=== PATIENT | female | born 1945 | race Caucasian/White ===

== ENCOUNTER → 2017-07-28 | Outpatient (CLI) | payer MEDICARE ==
--- NOTE | 2017-07-28 10:04 | RAD ---
EXAM: Chest 2 views. HISTORY: Cough and wheezing. COMPARISON: 05/13/2016. FINDINGS: Frontal and lateral views of the chest are obtained. The inspiration is relatively small with bibasilar atelectasis. Prominence of the right hilum is stable and suggests pulmonary arterial enlargement. There is no pneumothorax or pleural effusion. The heart is not enlarged. There are postsurgical changes in the left upper quadrant. Vertebroplasty changes are noted at the thoracolumbar junction. IMPRESSION: 1. Small inspiration with basilar atelectasis. 2. Correlate for pulmonary arterial hypertension.
== END | disposition home or self-care (01) ==
LOC: DXRADRC 09:27
PROVIDERS: ATTEND Physician Assistant Medical
DX: J98.11 Atelectasis (principal); R09.89 Other specified symptoms and signs involving the circulatory and respiratory systems
CPT/HCPCS: 71020

== ENCOUNTER → 2017-09-23 | Outpatient (CLI) | payer MEDICARE ==
--- NOTE | 2017-09-23 09:19 | RAD ---
EXAM: Chest 2 views. HISTORY: Cough and congestion. COMPARISON: 07/28/2017. FINDINGS: Frontal and lateral views of the chest are obtained. Enlargement of the right hilum appears to been stable chronically. There is mild atelectasis in the bases. There is no pneumothorax or pleural effusion. The heart is not enlarged. The aorta distal to this. Rightward deviation of the trachea is consistent with a left thyroid goiter as seen on prior studies. Surgical clips are noted throughout the left upper quadrant. There are vertebroplasty changes at the thoracolumbar junction. IMPRESSION: 1. Right hilar enlargement appears to be chronic and suggests pulmonary arterial enlargement in the setting of pulmonary arterial hypertension. CT could confirm this if there is persistent concern. 2. Findings consistent with a left thyroid goiter.
[2017-09-23 10:12] LABS: BASO # 0.1 x10^3/uL (0.0-0.2); BASO % 1 % (0-3); EOS # 0.6 x10^3/uL (0.0-0.7); EOS % 7 % (0-3); HEMATOCRIT 39.7 % (36.0-47.0); HEMOGLOBIN 13.1 g/dL (12.0-15.5); LYMPH # 1.5 x10^3/uL (1.0-4.8); LYMPH % 15 % (24-48); MEAN CORPUSCULAR HEMOGLOBIN 30 pg (25-35); MEAN CORPUSCULAR HGB CONC 33 g/dL (31-37); MEAN CORPUSCULAR VOLUME 89 fL (79-100); MONO # 0.6 x10^3/uL (0.0-1.1); MONO % 6 % (0-9); NEUT # 6.9 x10^3uL (1.8-7.7); NEUT % 72 % (31-73); PLATELET COUNT 283 x10^3/uL (140-400); RED BLOOD COUNT 4.45 x10^6/uL (3.50-5.40); RED CELL DISTRIBUTION WIDTH 14.7 % (11.5-14.5); WHITE BLOOD COUNT 9.7 x10^3/uL (4.0-11.0)
[2017-09-23 10:36] LABS: ALBUMIN 3.4 g/dL (3.4-5.0); ALBUMIN/GLOBULIN RATIO 0.9 (1.0-1.7); CALCIUM 8.7 mg/dL (8.5-10.1); CREATININE 0.8 mg/dL (0.6-1.0); GFR 70.7; POTASSIUM 4.2 mmol/L (3.5-5.1); TOTAL BILIRUBIN 0.3 mg/dL (0.2-1.0)
== END | disposition home or self-care (01) ==
LOC: DXRAD 07:58
PROVIDERS: ATTEND Physician Assistant Medical
DX: J98.11 Atelectasis (principal); J39.8 Other specified diseases of upper respiratory tract; Z98.890 Other specified postprocedural states
CPT/HCPCS: 36415; 71020; 80053; 85025

== ENCOUNTER → 2017-12-09 | Outpatient (CLI) | payer MEDICARE ==
--- NOTE | 2017-12-09 08:31 | RAD ---
2 views of the Chest 12/09/2017 2:00 AM Indication: ASTHMA, COUGH Comparison: Chest radiograph September 23, 2017 Findings: Heart size appears normal. Tortuosity and possible ectasia of the thoracic aorta is similar. Mild central vascular congestion also similar to prior exam. No new focal consolidation or infiltrate is seen. No pneumothorax or pleural effusion is seen. No acute osseous changes are identified. Prior thoracic vertebral augmentation noted. Impression: 1.No evidence of acute cardiopulmonary process or acute change from prior exam 2. Central vascular congestion again noted, similar to prior exam
== END | disposition home or self-care (01) ==
LOC: PMG 07:59
PROVIDERS: ATTEND Physician Assistant Medical
DX: J45.909 Unspecified asthma, uncomplicated (principal)
CPT/HCPCS: 71046

== ENCOUNTER → 2018-10-15 | Outpatient (CLI) | payer MEDICARE ==
--- NOTE | 2018-10-15 12:31 | RAD ---
DATE: 10/15/2018 EXAM: DIGITAL SCREEN BILAT W/CAD HISTORY: Routine screening. COMPARISON: Previous mammogram from 2015. This study was interpreted with the benefit of Computerized Aided Detection (CAD). FINDINGS: Breast Density: SCATTERED The breast parenchyma shows scattered fibroglandular densities. Breast parenchyma level B. The skin and nipples are within normal limits. No suspicious calcifications, spiculated masses or areas of architectural distortion. Benign-appearing bilateral calcifications. IMPRESSION: No mammographic evidence of malignancy. BI-RADS CATEGORY: 2 BENIGN FINDING(S) RECOMMENDED FOLLOW-UP: 12M 12 MONTH FOLLOW-UP PQRS compliance statement: Patient information was entered into a reminder system with a target due date for the next mammogram. Mammography is a sensitive method for finding small breast cancers, but it does not detect them all and is not a substitute for careful clinical examination. A negative mammogram does not negate a clinically suspicious finding and should not result in delay in biopsying a clinically suspicious abnormality. "Our facility is accredited by the [employer] Mammography Program."
== END | disposition home or self-care (01) ==
LOC: MAMMO 10:54
PROVIDERS: ATTEND Physician Assistant Medical
DX: Z12.31 Encounter for screening mammogram for malignant neoplasm of breast (principal)
CPT/HCPCS: 77067

== ENCOUNTER 2020-09-24 15:52 | Inpatient (IN) | payer MEDICARE ==
[~2020-09-24] VITALS: Ht 167.6 cm; Wt 137.4 kg
[2020-09-24] MEDS ORDERED: IPRATRPIUM/ALBUTEROL 0.5/2.5MG 3 ML NEBU. ONE (16:08)
[2020-09-24] MEDS ORDERED: methylPREDNISolone SOD SUCC PF 125 MG/2 ML VIAL. IV ONE (16:15)
[2020-09-24] MEDS ORDERED: IPRATRPIUM/ALBUTEROL 0.5/2.5MG 3 ML NEBU. NEB ONE ×2 (16:15)
--- NOTE | 2020-09-24 16:38 | RAD ---
INDICATION: Reason: soa / Spl. Instructions: / History: COMPARISON: December 09, 2017 FINDINGS: Single view of chest obtained. Enlarged cardiomediastinal silhouette. Patchy opacities bilaterally most severe at the left lung base. Degenerative changes of the shoulders IMPRESSION: * Patchy opacities most severe at the left lung base. This could be secondary to bilateral infiltrate. A component of edema is not excluded. * Enlarged cardiomediastinal silhouette. Electronically signed by: Mann Richey MD (09/24/2020 4:35 PM) [id number]
--- NOTE | 2020-09-24 17:01 | EKG ---
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
[2020-09-24 17:07] LABS: BASO % 0 % (0-3); EOS % 0 % (0-3); HEMATOCRIT 37.4 % (36.0-47.0); HEMOGLOBIN 11.9 g/dL (12.0-15.5); LYMPH # 1.8 x10^3/uL (1.0-4.8); LYMPH % 24 % (24-48); MEAN CORPUSCULAR HEMOGLOBIN 28 pg (25-35); MEAN CORPUSCULAR HGB CONC 32 g/dL (31-37); MEAN CORPUSCULAR VOLUME 89 fL (79-100); MONO # 0.5 x10^3/uL (0.0-1.1); MONO % 7 % (0-9); NEUT # 5.3 x10^3uL (1.8-7.7); NEUT % 69 % (31-73); PLATELET COUNT 242 x10^3/uL (140-400); RED BLOOD COUNT 4.21 x10^6/uL (3.50-5.40); RED CELL DISTRIBUTION WIDTH 14.9 % (11.5-14.5); WHITE BLOOD COUNT 7.6 x10^3/uL (4.0-11.0)
[2020-09-24 17:18] LABS: CALCIUM 8.5 mg/dL (8.5-10.1); CREATININE 0.9 mg/dL (0.6-1.0); GFR 61.2; POTASSIUM 3.6 mmol/L (3.5-5.1)
--- NOTE | 2020-09-24 17:26 | PHYS DOC ---
Past History Past Medical History: Asthma Past Surgical History: No Surgical History Alcohol Use: None General Adult EDM: Chief Complaint: SHORTNESS OF BREATH HPI: HPI: Patient is a 75-year-old female who presented to ER for evaluation of trouble breathing, cough, wheezing, fever and chills for about 2 weeks. Patient has history of asthma. Patient also had some symptom at home as well. Patient is not sure if she been exposed to anybody who tested positive for COVID-19. Patient has been isolated at home. She did not feel any better today so she came here for evaluation. Patient is not a smoker. She is not on any oxygen at home. Review of Systems: Review of Systems: Constitutional: Denies fever or chills Eyes: Denies change in visual acuity HENT: Denies nasal congestion or sore throat Respiratory: Positive for cough and shortness of breath Cardiovascular: Denies chest pain or edema GI: Denies abdominal pain, nausea, vomiting, bloody stools or diarrhea : Denies dysuria Musculoskeletal: Denies back pain or joint pain Integument: Denies rash Neurologic: Denies headache, focal weakness or sensory changes Endocrine: Denies polyuria or polydipsia Lymphatic: Denies swollen glands Psychiatric: Denies depression or anxiety Current Medications: Current Meds: Current Medications Medications (Trade) Dose Ordered Sig/Josué Start Time Stop Time Status Last Admin Dose Admin Albuterol/ Ipratropium (Duoneb) 3 ml 1X ONCE 09/24/20 16:15 09/24/20 16:16 DC Methylprednisolone Sodium Succinate (SOLU-Medrol 125MG VIAL) 125 mg 1X ONCE 09/24/20 16:15 09/24/20 16:16 DC 09/24/20 16:45 125 MG Allergies: Allergies: Allergies Coded Allergies Type Severity Reaction Last Updated Verified No Known Drug Allergies 02/25/18 No Physical Exam: PE: Constitutional: Well developed, well nourished, no acute distress, non-toxic appearance. [] HENT: Normocephalic, atraumatic, bilateral external ears normal, oropharynx moist, no oral exudates, nose normal. [] Eyes: PERRLA, EOMI, conjunctiva normal, no discharge. [] Neck: Normal range of motion, no tenderness, supple, no stridor. [] Cardiovascular:Heart rate regular rhythm, no murmur [] Lungs & Thorax: Bilateral breath sounds with wheezing to auscultation, tachypnic Abdomen: Bowel sounds normal, soft, no tenderness, no masses, no pulsatile masses. [] Skin: Warm, dry, no erythema, no rash. [] Back: No tenderness, no CVA tenderness. [] Extremities: No tenderness, no cyanosis, no clubbing, ROM intact, no edema. [] Neurologic: Alert and oriented X 3, normal motor function, normal sensory function, no focal deficits noted. [] Psychologic: Affect normal, judgement normal, mood normal. [] Current Patient Data: Labs: Laboratory Tests Test 09/24/20 16:41 White Blood Count 7.6 x10^3/uL (4.0-11.0) Red Blood Count 4.21 x10^6/uL (3.50-5.40) Hemoglobin 11.9 g/dL (12.0-15.5) L Hematocrit 37.4 % (36.0-47.0) Mean Corpuscular Volume 89 fL (79-100) Mean Corpuscular Hemoglobin 28 pg (25-35) Mean Corpuscular Hemoglobin Concent 32 g/dL (31-37) Red Cell Distribution Width 14.9 % (11.5-14.5) H Platelet Count 242 x10^3/uL (140-400) Neutrophils (%) (Auto) 69 % (31-73) Lymphocytes (%) (Auto) 24 % (24-48) Monocytes (%) (Auto) 7 % (0-9) Eosinophils (%) (Auto) 0 % (0-3) Basophils (%) (Auto) 0 % (0-3) Neutrophils # (Auto) 5.3 x10^3uL (1.8-7.7) Lymphocytes # (Auto) 1.8 x10^3/uL (1.0-4.8) Monocytes # (Auto) 0.5 x10^3/uL (0.0-1.1) Eosinophils # (Auto) 0.0 x10^3/uL (0.0-0.7) Basophils # (Auto) 0.0 x10^3/uL (0.0-0.2) Sodium Level 134 mmol/L (136-145) L Potassium Level 3.6 mmol/L (3.5-5.1) Chloride Level 98 mmol/L (98-107) Carbon Dioxide Level 25 mmol/L (21-32) Anion Gap 11 (6-14) Blood Urea Nitrogen 8 mg/dL (7-20) Creatinine 0.9 mg/dL (0.6-1.0) Estimated GFR (Cockcroft-Gault) 61.2 BUN/Creatinine Ratio 9 (6-20) Glucose Level 133 mg/dL (70-99) H Calcium Level 8.5 mg/dL (8.5-10.1) Magnesium Level Pending Total Bilirubin Pending Aspartate Amino Transferase (AST) Pending Alanine Aminotransferase (ALT) Pending Alkaline Phosphatase Pending Troponin I Quantitative 0.018 ng/mL (0-0.055) SE-Zsd-G-Type Natriuretic Peptide Pending Total Protein Pending Albumin Pending Albumin/Globulin Ratio Pending Vital Signs: Vital Signs Date Time Temp Pulse Resp B/P (MAP) Pulse Ox O2 Delivery O2 Flow Rate FiO2 09/24/20 15:52 99.1 103 28 133/59 (83) 91 Room Air EKG: EKG: EKG was done at 1620, heart rate 108 beats per minute, sinus tachycardia, no ST segment elevation. [] Radiology/Procedures: Radiology/Procedures: [][place] [address] IMAGING REPORT Signed PATIENT: SHWETA QUIÑONEZ ACCOUNT: [id number] : 1945 LOCATION: ER AGE: 75 SEX: F EXAM STATUS: REG ER ORD. PHYSICIAN: JOHNSON PARSONS DO REASON: soa PROCEDURE: CHEST AP ONLY INDICATION: Reason: soa / Spl. Instructions: / History: COMPARISON: December 09, 2017 FINDINGS: Single view of chest obtained. Enlarged cardiomediastinal silhouette. Patchy opacities bilaterally most severe at the left lung base. Degenerative changes of the shoulders IMPRESSION: * Patchy opacities most severe at the left lung base. This could be secondary to bilateral infiltrate. A component of edema is not excluded. * Enlarged cardiomediastinal silhouette. Electronically signed by: Darinel Anderson MD (09/24/2020 4:35 PM) [id number] DICTATED AND SIGNED BY: DARINEL ANDERSON MD DATE: 09/24/20 1635 CC: JOHNSON PARSONS DO; WALESKA OLGUIN MD ~MTH0 0 Heart Score: Risk Factors: Risk Factors: DM, Current or recent (<one month) smoker, HTN, HLP, family history of CAD, obesity. Risk Scores: Score 0 - 3: 2.5% MACE over next 6 weeks - Discharge Home Score 4 - 6: 20.3% MACE over next 6 weeks - Admit for Clinical Observation Score 7 - 10: 72.7% MACE over next 6 weeks - Early Invasive Strategies Course & Med Decision Making: Course & Med Decision Making Pertinent Labs and Imaging studies reviewed. (See chart for details) Patient is a 75-year-old female who was evaluated in ER due to trouble breathing and cough. She is suspicious to have COVID-19 infection. Her chest x-ray showed bilateral patchy infiltration at the lung bases worse on the left side. Patient was given nebulizer treatment Solu-Medrol and antibiotic in ER, discussed with the hospitalist on-call Dr. Harvey who agrees to admit the patient. Dragon Disclaimer: Dragon Disclaimer: This electronic medical record was generated, in whole or in part, using a voice recognition dictation system. Departure Departure: Impression: Primary Impression: Pneumonia Additional Impressions: Person under investigation for COVID-19 Exacerbation of asthma Disposition: ADMITTED INPT THIS HOSP Admitting Physician: Juan C Harvey Condition: IMPROVED Referrals: WALESKA OLGUIN MD (PCP) JOHNSON PARSONS DO Sep 24, 2020 17:26
[2020-09-24] MEDS ORDERED: AZITHROMYCIN 500 MG in IV NORMAL SALINE 250ML 250 ML IV ONE (17:30)
[2020-09-24 17:31] LABS: ALBUMIN/GLOBULIN RATIO 0.7 (1.0-1.7); MAGNESIUM 1.7 mg/dL (1.8-2.4); TOTAL BILIRUBIN 0.3 mg/dL (0.2-1.0); TOTAL PROTEIN 7.2 g/dL (6.4-8.2)
[2020-09-24] MEDS ORDERED: MAGNESIUM SULFATE 2GM 50 ML IV ONE (17:45)
[2020-09-24] MEDS ORDERED: ONDANSETRON PF 4 MG/2 ML VIAL. IVP PRN (17:45)
[2020-09-24] MEDS ORDERED: cefTRIAXone SODIUM 1 GM VIAL ONE ×2 (17:51→18:23)
[2020-09-24] MEDS ORDERED: IV NORMAL SALINE 50ML 0 ML ONE (17:51)
[2020-09-24] MEDS ORDERED: IV NORMAL SALINE 250ML 250 ML ONE (17:51)
[2020-09-24] MEDS ORDERED: AZITHROMYCIN 500 MG VIAL. IV ONE (17:51)
[2020-09-24] MEDS ORDERED: IV NORMAL SALINE 50ML 50 ML ONE (18:23)
[2020-09-24 20:00] VITALS: BP 138/63
[2020-09-24] MEDS ORDERED: IPRATRPIUM/ALBUTEROL 0.5/2.5MG 3 ML NEBU. NEB SCH (20:00)
[2020-09-24 21:07] VITALS: BP 134/78
[2020-09-24 22:03] VITALS: BP 177/91
[2020-09-24 23:00] VITALS: BP 129/71
[2020-09-25] VITALS (20 sets, daily range): BP systolic 116–155; BP diastolic 57–82
[2020-09-25] MEDS ORDERED: FAMO-63 PO (07:18)
[2020-09-25] MEDS ORDERED: ESCITALOPRAM OX20 MG PO (07:18)
[2020-09-25] MEDS ORDERED: LORA10TA3 PO (07:18)
[2020-09-25] MEDS ORDERED: PRED-220 PO (07:18)
[2020-09-25 07:25] LABS: BASO % 0 % (0-3); EOS % 0 % (0-3); HEMATOCRIT 37.8 % (36.0-47.0); HEMOGLOBIN 11.9 g/dL (12.0-15.5); LYMPH # 0.5 x10^3/uL (1.0-4.8); LYMPH % 22 % (24-48); MEAN CORPUSCULAR HEMOGLOBIN 28 pg (25-35); MEAN CORPUSCULAR HGB CONC 32 g/dL (31-37); MEAN CORPUSCULAR VOLUME 90 fL (79-100); MONO # 0.2 x10^3/uL (0.0-1.1); MONO % 8 % (0-9); NEUT # 1.6 x10^3uL (1.8-7.7); NEUT % 71 % (31-73); PLATELET COUNT 248 x10^3/uL (140-400); RED BLOOD COUNT 4.22 x10^6/uL (3.50-5.40); RED CELL DISTRIBUTION WIDTH 15.3 % (11.5-14.5); WHITE BLOOD COUNT 2.3 x10^3/uL (4.0-11.0)
[2020-09-25 07:28] LABS: CALCIUM 8.4 mg/dL (8.5-10.1); CREATININE 0.9 mg/dL (0.6-1.0); GFR 61.2; POTASSIUM 4.6 mmol/L (3.5-5.1)
[2020-09-25] MEDS ORDERED: REMDESIVIR LOAD in IV NORMAL SALINE 250ML TV IV ONE (09:00)
[2020-09-25] MEDS: methylPREDNISolone SOD SUCC PF 40 MG/ML VIAL. IV SCH ×3 (09:07→21:04)
[2020-09-25] MEDS: ENOXAPARIN 40 MG/0.4 ML SYRINGE. SQ SCH ×2 (09:08→21:04)
[2020-09-25] MEDS: ACETAMINOPHEN 500 MG TABLET PO PRN ×2 (09:08→15:25)
[2020-09-25] MEDS: IPRATROPIUM/ALBUTEROL 20/100mcg/INH INHALER. INH SCH ×4 (09:08→19:26)
[2020-09-25] MEDS ORDERED: AZITHROMYCIN 250 MG in IV NORMAL SALINE 250ML 250 ML IV SCH (13:00)
[2020-09-25] MEDS: AZITHROMYCIN 500 MG in IV NORMAL SALINE 250ML 250 ML IV SCH (13:17)
--- NOTE | 2020-09-25 15:35 | HP ---
ADMIT DATE: 09/24/2020 HISTORY OF PRESENT ILLNESS: The patient is a 75-year-old female patient, who was brought to the Emergency Room for evaluation of trouble breathing, cough, wheezing, fever and chills for almost 2 weeks. The patient is known to have bronchial asthma. She and her have similar symptoms and have been quarantining themselves and have not been going out. She is not sure that she has not been exposed to anybody who tested positive for COVID-19. She has been isolated at home and as her symptoms worsening, she was brought to the Emergency Room for evaluation and treatment. She was extensively evaluated with lab work as well as imaging studies. Her white cell count is only 7600. Her chemistry was unremarkable except for mild hypomagnesemia and hyponatremia and her SARS-CoV-2 by PCR was positive. Her chest x-ray showed patchy opacities, most severe at the left lung base. This could be secondary to bilateral infiltrate, a component of edema is not excluded, has enlarged cardiomediastinal silhouette. She was admitted with diagnosis of COVID-19 pneumonia and asthma exacerbation. She was started on IV steroids as well as ceftriaxone and Zithromax. She has received convalescent plasma as well as remdesivir. PAST MEDICAL HISTORY: Significant for bronchial asthma, gastroesophageal reflux disease, seasonal allergy and osteoarthritis as well as morbid obesity as her body mass index is 48 kilograms square meter. PAST SURGICAL HISTORY: Significant for tonsillectomy, right arthroscopic knee surgery as well as gastric bypass surgery. ALLERGIES: She has no known drug allergies. MEDICATIONS: She is currently on following medications: She is on loratadine 10 mg once a day, escitalopram oxalate 20 mg once a day, famotidine 20 mg twice a day and prednisone 10 mg once a day. FAMILY HISTORY: She has 1 older brother who at the age of 76 because of complication of severe emphysema. She has 4 brothers younger, one of them has stage 4 throat cancer and has a gastrostomy tube. Both parents are . SOCIAL HISTORY: She is , has a son and a daughter. She has never smoked herself, but she has been a secondhand smoker. She does not drink alcohol or use any recreational drugs. 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 REVIEW OF SYSTEMS: As per history of present illness. PHYSICAL EXAMINATION: GENERAL: On arrival to the Emergency Room, the patient was slightly tachypneic; however, there was no pallor, jaundice, cyanosis or thyromegaly. No jugular venous distention. No lower limb edema. VITAL SIGNS: Her heart rate was 103, blood pressure was 133/59, temperature was 99.1, respiratory rate was 28 and oxygen saturation was 91%. HEAD, EYES, EARS, NOSE AND THROAT: Showed normocephalic, atraumatic. NECK: Supple. HEART: Normal first and second heart sounds. No gallop or murmur. CHEST: Shows central trachea, equal bilateral chest expansion, air entry with diffuse bilateral wheezing and inspiratory rhonchi. She was definitely tachypneic. ABDOMEN: Distended, soft, nontender. NEUROLOGIC: She was alert, oriented x 3 with normal motor and sensory function, no focal deficit. EXTREMITIES: Showed no clubbing, cyanosis or edema. Her EKG showed that she was in sinus tachycardia with heart rate of 108 beats per minute with no ST segment elevation. LABORATORY WORK: Showed a white cell count of 7600, hemoglobin 11.9, hematocrit 37.4, MCV 89 and platelet count 242,000. Her chemistry showed a serum sodium 134, potassium 3.6, chloride 98, bicarbonate 25, anion gap of 11, BUN 8, creatinine 0.9, estimated GFR was 61 mL per minute. Her glucose 133, calcium was 8.5. Magnesium was 1.7. Total bilirubin, AST, ALT, alkaline phosphatase were normal. Beta natriuretic peptide was 630 pg/mL. Her total protein was 7.2, albumin 3. Her chest x-ray showed that she has enlarged cardiomediastinal silhouette with patchy opacities bilaterally, most severe at the left lung base. She had degenerative changes of the shoulders. Therefore, the patient was admitted with community-acquired pneumonia, probably due to coronavirus bronchial asthma exacerbation. The patient was continued on IV ceftriaxone, Zithromax, steroids, remdesivir and convalescent plasma. ANOOP GRAFF MD DR: JEFF/bobby JOB#: [id number] / [id number]
--- NOTE | 2020-09-25 21:32 | PN ---
DATE: 09/25/2020 SUBJECTIVE: The patient is resting, slightly propped up in bed, in no apparent respiratory distress. She continued to have some cough and shortness of breath, but generally comfortable when she is at rest. She does start to have wheezing on exertion. She is now on 5 liters of oxygen, maintaining her oxygen saturation about ____ 93%. OBJECTIVE: GENERAL: When I examined her, she looked well and was clearly in no apparent respiratory distress. No pallor, jaundice, cyanosis or thyromegaly. No jugular venous distention. No lower limb edema. VITAL SIGNS: Her heart rate was 92, blood pressure was 143/74, temperature 97.8, respiratory rate 20, and oxygen saturation was 92% on 5 liters of oxygen. HEAD, EYES, EARS, NOSE AND THROAT: Showed normocephalic and atraumatic. NECK: Supple. HEART: Showed normal first and second heart sounds with no gallop, rub or murmur. CHEST: Clear to auscultation. No crepitation or rhonchi. ABDOMEN: Distended, soft, nontender. NEUROLOGIC: She was awake, alert, responding appropriately. All cranial nerves intact. She moves extremities without difficulty. Her intake over the last 24 hours and output are incompletely recorded. LABORATORY DATA: Her lab work this morning showed a white cell count of 2300, hemoglobin 11.9, hematocrit 38, MCV 90 and platelet count of 248,000. Her chemistry showed a serum sodium 138, potassium 4.6, chloride 101, bicarbonate 29, anion gap of 8, BUN 13, creatinine 0.9, estimated GFR was 61 mL per minute. Her glucose 167, calcium was 8.4, magnesium was 2.1. ASSESSMENT: 1. COVID-19 pneumonia/community-acquired pneumonia. 2. Bronchial asthma exacerbation. 3. Morbid obesity. 4. Acute hypoxic respiratory failure. PLAN: To obviously continue with IV antibiotic. Continue with steroids, remdesivir and convalescent plasma. Continue with Lovenox. ANOOP GRAFF MD DR: JEFF/bobby JOB#: [id number] / [id number]
[2020-09-26] VITALS (26 sets, daily range): BP systolic 127–175; BP diastolic 67–103
[2020-09-26] MEDS: methylPREDNISolone SOD SUCC PF 40 MG/ML VIAL. IV SCH ×3 (05:24→21:11)
[2020-09-26 06:14] LABS: RED BLOOD COUNT 4.24 x10^6/uL (3.50-5.40); RED CELL DISTRIBUTION WIDTH 15.5 % (11.5-14.5); WHITE BLOOD COUNT 9.2 x10^3/uL (4.0-11.0)
[2020-09-26 06:31] LABS: ALBUMIN 2.7 g/dL (3.4-5.0); ALBUMIN/GLOBULIN RATIO 0.6 (1.0-1.7); CALCIUM 8.5 mg/dL (8.5-10.1); CREATININE 0.8 mg/dL (0.6-1.0); GFR 70.1; POTASSIUM 4.2 mmol/L (3.5-5.1); TOTAL BILIRUBIN 0.2 mg/dL (0.2-1.0); TOTAL PROTEIN 7.3 g/dL (6.4-8.2)
[2020-09-26] MEDS: IPRATROPIUM/ALBUTEROL 20/100mcg/INH INHALER. INH SCH ×4 (08:12→19:23)
[2020-09-26] MEDS: ENOXAPARIN 40 MG/0.4 ML SYRINGE. SQ SCH ×2 (10:09→21:11)
[2020-09-26] MEDS: REMDESIVIR 100mg in NORMAL SALINE 250ML X 4 DAYS IV SCH (10:10)
[2020-09-26] MEDS: AZITHROMYCIN 500 MG in IV NORMAL SALINE 250ML 250 ML IV SCH (13:16)
[2020-09-26] MEDS: ACETAMINOPHEN 500 MG TABLET PO PRN (14:41)
[2020-09-26] MEDS: LACTOBACILLUS RHAMNOSUS GG 1 CAPSULE. PO SCH (21:11)
[2020-09-26] MEDS: FAMOTIDINE 20 MG TABLET PO SCH (21:11)
[2020-09-26] MEDS ORDERED: traZODone 50 MG TABLET. PO PRN (21:15)
--- NOTE | 2020-09-26 23:16 | PN ---
DATE: 09/26/2020 SUBJECTIVE: The patient is resting, slightly propped up in bed, in no apparent distress. She is awake, alert, feeling generally much improved. She has no more chest tightness or wheezing. She has continued to have cough with scanty sputum. Her oxygen requirement is improving. She is now on only 4 liters of oxygen. OBJECTIVE: GENERAL: When I examined her this afternoon, she looked well and was clearly in no apparent respiratory distress. No pallor, jaundice, cyanosis or thyromegaly. No jugular venous distention. No lower limb edema. VITAL SIGNS: Her heart rate was 63, blood pressure was 155/84, temperature was 96, respiratory rate was 21 and oxygen saturation was 92% on 4 liters of oxygen. HEAD, EYES, EARS, NOSE AND THROAT: Showed normocephalic, atraumatic. NECK: Supple. HEART: Showed normal first and second heart sounds. No gallop or murmur. CHEST: Clear to auscultation. No crepitation or rhonchi. ABDOMEN: Distended, soft, nontender. NEUROLOGIC: She is awake, alert, responding appropriately. All cranial nerves intact. She moves extremities without difficulty. She has been able to ambulate within her room without difficulty. Sat in the chair and used the bedside commode. Her intake over the last 24 hours was 1660, no output was recorded. LABORATORY DATA: As of this morning, her white cell count was 9200, hemoglobin 12, hematocrit 38, MCV 90 and platelet count of 320,000. Her chemistry showed a serum sodium 137, potassium 4.2, chloride 102, bicarbonate 27, anion gap of 8, BUN 23, creatinine 0.8, estimated GFR was 70 mL per minute. Her glucose was 154, calcium was 8.5. Total bilirubin, AST, ALT, alkaline phosphatase were normal. Total protein was 7.3, albumin 2.7. ASSESSMENT: 1. COVID-19 pneumonia/community-acquired pneumonia. 2. Bronchial asthma exacerbation. 3. Acute hypoxic respiratory failure. 4. Morbid obesity. PLAN: Obviously to continue with IV antibiotic. Continue with steroids, remdesivir and convalescent plasma. Continue with Lovenox. ANOOP GRAFF MD DR: JEFF/bobby JOB#: [id number] / [id number]
[2020-09-27] VITALS (19 sets, daily range): BP systolic 86–178; BP diastolic 54–99
[2020-09-27] MEDS: methylPREDNISolone SOD SUCC PF 40 MG/ML VIAL. IV SCH ×3 (05:29→21:12)
[2020-09-27 06:06] LABS: HEMATOCRIT 35.9 % (36.0-47.0); HEMOGLOBIN 11.2 g/dL (12.0-15.5); RED BLOOD COUNT 3.99 x10^6/uL (3.50-5.40); WHITE BLOOD COUNT 9.2 x10^3/uL (4.0-11.0)
[2020-09-27 06:22] LABS: ALBUMIN 2.6 g/dL (3.4-5.0); ALBUMIN/GLOBULIN RATIO 0.6 (1.0-1.7); CALCIUM 8.7 mg/dL (8.5-10.1); CREATININE 0.7 mg/dL (0.6-1.0); GFR 81.8; POTASSIUM 4.4 mmol/L (3.5-5.1); TOTAL BILIRUBIN 0.2 mg/dL (0.2-1.0); TOTAL PROTEIN 6.7 g/dL (6.4-8.2)
[2020-09-27] MEDS: IPRATROPIUM/ALBUTEROL 20/100mcg/INH INHALER. INH SCH ×4 (08:07→19:14)
[2020-09-27] MEDS: FAMOTIDINE 20 MG TABLET PO SCH ×2 (08:07→21:12)
[2020-09-27] MEDS: ENOXAPARIN 40 MG/0.4 ML SYRINGE. SQ SCH ×2 (08:07→21:12)
[2020-09-27] MEDS: LACTOBACILLUS RHAMNOSUS GG 1 CAPSULE. PO SCH ×2 (08:07→21:12)
[2020-09-27] MEDS: CETIRIZINE HCL 10 MG TABLET PO SCH (08:07)
[2020-09-27] MEDS: CITALOPRAM 20 MG TABLET. PO SCH (08:07)
[2020-09-27] MEDS: REMDESIVIR 100mg in NORMAL SALINE 250ML X 4 DAYS IV SCH (08:10)
[2020-09-27] MEDS: ACETAMINOPHEN 500 MG TABLET PO PRN ×2 (08:50→21:12)
[2020-09-27] MEDS: AZITHROMYCIN 500 MG in IV NORMAL SALINE 250ML 250 ML IV SCH (13:29)
[2020-09-27] MEDS ORDERED: traMADol 50 MG TABLET PO PRN (15:45)
[2020-09-27] MEDS: TEMAZEPAM 15 MG CAPSULE PO SCH (21:12)
[2020-09-28] VITALS (13 sets, daily range): BP systolic 124–194; BP diastolic 65–120
[2020-09-28] MEDS: methylPREDNISolone SOD SUCC PF 40 MG/ML VIAL. IV SCH ×3 (05:31→20:45)
--- NOTE | 2020-09-28 07:33 | PN ---
DATE: 09/27/2020 ATTENDING PHYSICIAN: Juan C Harvey MD SUBJECTIVE: She is feeling better. She denies any wheezing, cough, congestion. She clinically feels stronger. We are weaning down her supplemental oxygen. OBJECTIVE FINDINGS: VITAL SIGNS: Blood pressure today is 149/76, oxygen saturation 97% on 3 liters of nasal cannula, heart rate is in the 50s and 60s. She is afebrile. HEENT: Head is without trauma. Pupils are reactive. Sclerae are nonicteric. Oropharynx is clear. NECK: Supple. There are no bruits. LUNGS: Good breath sounds with minimum rhonchi. CARDIOVASCULAR: Showed regular heart tones. No gallops. ABDOMEN: Soft, obese, protuberant. No organomegaly. NEUROLOGIC: Focally intact. No deficits. Speech is fluent. EXTREMITIES: Without edema. SKIN: Warm and dry. ASSESSMENT: 1. A 75-year-old female with COVID-19 pneumonia. 2. Exacerbation of bronchial asthma. 3. Acute hypoxemic respiratory failure, improved. 4. Morbid obesity. PLAN: 1. Finish remdesivir, today is day #3. 2. Other meds reviewed. 3. We shall wean down her supplemental oxygen. 4. Long discussion regarding plans for quarantine after discharge from the hospital. JATIN ARREGUIN MD DR: EDSON/bobby JOB#: [id number] / [id number]
[2020-09-28] MEDS: IPRATROPIUM/ALBUTEROL 20/100mcg/INH INHALER. INH SCH ×4 (07:53→19:42)
[2020-09-28] MEDS: CITALOPRAM 20 MG TABLET. PO SCH (07:54)
[2020-09-28] MEDS: ENOXAPARIN ** NOTE DOSE ** SYRINGE SQ SCH ×2 (07:54→20:45)
[2020-09-28] MEDS: CETIRIZINE HCL 10 MG TABLET PO SCH (07:54)
[2020-09-28] MEDS: FAMOTIDINE 20 MG TABLET PO SCH ×2 (07:54→20:45)
[2020-09-28] MEDS: LACTOBACILLUS RHAMNOSUS GG 1 CAPSULE. PO SCH ×2 (07:54→20:45)
[2020-09-28] MEDS: REMDESIVIR 100mg in NORMAL SALINE 250ML X 4 DAYS IV SCH (09:03)
[2020-09-28] MEDS: POLYETHYLENE GLYCOL 3350 17 GM PACKET. PO SCH (09:45)
--- NOTE | 2020-09-28 10:29 | PN ---
DATE: 09/28/2020 ATTENDING PHYSICIAN: Dr. Harvey and Dr. Arreguin. SUBJECTIVE: Feeling better up to chair, eating well. No other complaints. OBJECTIVE FINDINGS: VITAL SIGNS: Blood pressure today is 165/89, pulse 81 and regular, oxygen saturation 96% on 2 liters by nasal cannula. She is afebrile. HEENT: Head is without trauma. Pupils are reactive. Sclerae are nonicteric. Oropharynx is clear. NECK: Supple. LUNGS: Good breath sounds. CARDIOVASCULAR: Showed regular heart tones. No gallops. ABDOMEN: Soft, obese, protuberant. No organomegaly. Normoactive bowel sounds. EXTREMITIES: Show no cyanosis or edema. NEUROLOGIC: Focally intact. SKIN: Warm and dry. ASSESSMENT: 1. A 75-year-old female with COVID-19 pneumonia. 2. Exacerbation of bronchial asthma. 3. Acute hypoxemic respiratory failure, improved. 4. Morbid obesity. PLAN: 1. Finish remdesivir 5-day course. 2. We are weaning down her supplemental oxygen requirements. 3. Discharge planning for this weekend for quarantine at home. JATIN ARREGUIN MD DR: EDSON/bobby JOB#: [id number] / [id number]
[2020-09-28] MEDS: AZITHROMYCIN 500 MG in IV NORMAL SALINE 250ML 250 ML IV SCH (14:02)
[2020-09-28] MEDS ORDERED: FUROSEMIDE 40 MG/4 ML VIAL IVP ONE (17:25)
[2020-09-28] MEDS: ACETAMINOPHEN 500 MG TABLET PO PRN (20:45)
[2020-09-28] MEDS: TEMAZEPAM 15 MG CAPSULE PO SCH (20:45)
[2020-09-29] MEDS: methylPREDNISolone SOD SUCC PF 40 MG/ML VIAL. IV SCH ×3 (05:23→21:31)
[2020-09-29 05:48] VITALS: BP 179/87
[2020-09-29 06:22] LABS: ALBUMIN 2.8 g/dL (3.4-5.0); ALBUMIN/GLOBULIN RATIO 0.7 (1.0-1.7); CALCIUM 8.6 mg/dL (8.5-10.1); CREATININE 0.9 mg/dL (0.6-1.0); GFR 61.2; TOTAL BILIRUBIN 0.2 mg/dL (0.2-1.0); TOTAL PROTEIN 6.7 g/dL (6.4-8.2)
[2020-09-29] MEDS: IPRATROPIUM/ALBUTEROL 20/100mcg/INH INHALER. INH SCH ×4 (09:00→20:00)
[2020-09-29] MEDS: ENOXAPARIN ** NOTE DOSE ** SYRINGE SQ SCH ×2 (09:10→21:32)
[2020-09-29] MEDS: POLYETHYLENE GLYCOL 3350 17 GM PACKET. PO SCH (09:10)
[2020-09-29] MEDS: CETIRIZINE HCL 10 MG TABLET PO SCH (09:10)
[2020-09-29] MEDS: LACTOBACILLUS RHAMNOSUS GG 1 CAPSULE. PO SCH ×2 (09:10→21:31)
[2020-09-29] MEDS: FAMOTIDINE 20 MG TABLET PO SCH ×2 (09:10→21:31)
[2020-09-29] MEDS: CITALOPRAM 20 MG TABLET. PO SCH (09:11)
[2020-09-29] MEDS: REMDESIVIR 100mg in NORMAL SALINE 250ML X 4 DAYS IV SCH (09:11)
[2020-09-29 10:08] VITALS: BP 161/85
[2020-09-29] MEDS ORDERED: HYDROcodone/CHLORPHEN POLIS 5 ML SUS.ER.12H PO PRN (11:00)
--- NOTE | 2020-09-29 11:59 | PN ---
DATE: 09/29/2020 ATTENDING PHYSICIAN: Dr. Harvey and Dr. Arreguin. SUBJECTIVE: The patient is feeling well. She is out of intensive care. We have her wean down to adequate saturations on room air. She denied any dyspnea or shortness of breath, cough, or congestion. She remains afebrile. OBJECTIVE FINDINGS: VITAL SIGNS: Blood pressure today is 155/81 mmHg, pulse is 76 and regular, temperature 97.4 degrees Fahrenheit, oxygen saturation 94% on room air. HEENT: Head is without trauma. Pupils are reactive. Sclerae are nonicteric. Oropharynx remains clear. NECK: Supple, no bruits identified. LUNGS: Good breath sounds. CARDIOVASCULAR: Showed regular heart tones. No gallops. ABDOMEN: Soft, obese, protuberant. No organomegaly. Bowel sounds were normoactive. EXTREMITIES: Showed no cyanosis or edema. NEUROLOGIC: Focally intact. Speech is fluent. SKIN: Warm and dry. LABORATORY DATA: Followup chemistry today showed normal electrolytes, sodium 138 mEq/L, potassium 4.0, creatinine 0.9 mg/dL, nonfasting blood sugar 155 mg/dL. ASSESSMENT: 1. A 75-year-old female with COVID-19 pneumonia, improved. She is on day 4 of remdesivir. 2. Exacerbation of bronchial asthma. 3. Acute hypoxemic respiratory failure, improved. 4. Morbid obesity. PLAN: 1. Finish remdesivir 5-day course. 2. We have weaned down her oxygen supplementation. 3. Discharge planning for this weekend. 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 JATIN ARREGUIN MD DR: EDSON/bobby JOB#: [id number] / [id number]
[2020-09-29] MEDS: AZITHROMYCIN 500 MG in IV NORMAL SALINE 250ML 250 ML IV SCH (13:42)
[2020-09-29 14:33] VITALS: BP 157/82
[2020-09-29 20:25] VITALS: BP 171/76
[2020-09-29] MEDS: TEMAZEPAM 15 MG CAPSULE PO SCH (21:31)
[2020-09-29 22:43] VITALS: BP 147/82
[2020-09-30] MEDS: methylPREDNISolone SOD SUCC PF 40 MG/ML VIAL. IV SCH (06:14)
[2020-09-30 06:40] VITALS: BP 181/95
[2020-09-30] MEDS: IPRATROPIUM/ALBUTEROL 20/100mcg/INH INHALER. INH SCH ×4 (08:00→19:55)
[2020-09-30 08:25] LABS: ALBUMIN 2.7 g/dL (3.4-5.0); ALBUMIN/GLOBULIN RATIO 0.7 (1.0-1.7); CALCIUM 8.5 mg/dL (8.5-10.1); CREATININE 0.8 mg/dL (0.6-1.0); GFR 70.1; POTASSIUM 4.1 mmol/L (3.5-5.1); TOTAL BILIRUBIN 0.3 mg/dL (0.2-1.0); TOTAL PROTEIN 6.6 g/dL (6.4-8.2)
[2020-09-30] MEDS: FAMOTIDINE 20 MG TABLET PO SCH ×2 (08:31→19:55)
[2020-09-30] MEDS: POLYETHYLENE GLYCOL 3350 17 GM PACKET. PO SCH (08:32)
[2020-09-30] MEDS: LACTOBACILLUS RHAMNOSUS GG 1 CAPSULE. PO SCH ×2 (08:32→19:55)
[2020-09-30] MEDS: ENOXAPARIN ** NOTE DOSE ** SYRINGE SQ SCH (08:32)
[2020-09-30] MEDS: CETIRIZINE HCL 10 MG TABLET PO SCH (08:32)
[2020-09-30] MEDS: CITALOPRAM 20 MG TABLET. PO SCH (08:32)
--- NOTE | 2020-09-30 10:20 | PN ---
DATE: 09/30/2020 ATTENDING PHYSICIAN: Dr. Harvey. SUBJECTIVE: Doing well. Cough is improved with the Tussionex. No fevers, no respiratory distress. We are finishing up her remdesivir treatment. She remains afebrile. OBJECTIVE FINDINGS: VITAL SIGNS: Blood pressure today is 140-180 systolic. It will fluctuate. She is a bit concerned. I reassured her. Temperature 98.5 degrees Fahrenheit, pulse 66 and regular, oxygen saturation 93% on room air. HEENT: Head is without trauma. Pupils are reactive. Sclerae are nonicteric. Oropharynx clear. NECK: Supple. No stridor. LUNGS: Good air movement, otherwise clear. CARDIOVASCULAR: Showed regular heart tones. No gallops. ABDOMEN: Soft, obese, protuberant. Normoactive bowel sounds. EXTREMITIES: Show no cyanosis or edema. NEUROLOGIC: Focally intact. Speech is fluent. SKIN: Otherwise warm and dry. ASSESSMENT: 1. A 75-year-old female with COVID-19 pneumonia, improved. She is finishing up her treatment of remdesivir. 2. Exacerbation of bronchial asthma. 3. Acute hypoxemic respiratory failure, improved. 4. Morbid obesity. PLAN: 1. Finish remdesivir as ordered. 2. We can discontinue her corticosteroid. 3. Discontinue Lovenox. 4. Tentative discharge for tomorrow morning. 5. We have weaned her off of supplemental oxygen. She will not need any at the time of discharge. JATIN ARREGUIN MD DR: EDSON/bobby JOB#: [id number] / [id number]
[2020-09-30 11:40] VITALS: BP 160/72
[2020-09-30] MEDS: AZITHROMYCIN 500 MG in IV NORMAL SALINE 250ML 250 ML IV SCH (14:06)
[2020-09-30 15:18] VITALS: BP 153/87
[2020-09-30 19:35] VITALS: BP 166/82
[2020-09-30] MEDS: TEMAZEPAM 15 MG CAPSULE PO SCH (19:56)
[2020-10-01 05:25] VITALS: BP 174/82
[2020-10-01] MEDS: IPRATROPIUM/ALBUTEROL 20/100mcg/INH INHALER. INH SCH (08:00)
[2020-10-01] MEDS: CITALOPRAM 20 MG TABLET. PO SCH (08:25)
[2020-10-01] MEDS: FAMOTIDINE 20 MG TABLET PO SCH (08:25)
[2020-10-01] MEDS: POLYETHYLENE GLYCOL 3350 17 GM PACKET. PO SCH (08:25)
[2020-10-01] MEDS: LACTOBACILLUS RHAMNOSUS GG 1 CAPSULE. PO SCH (08:25)
[2020-10-01] MEDS: CETIRIZINE HCL 10 MG TABLET PO SCH (08:25)
[2020-10-01 09:09] LABS: ALBUMIN 3.1 g/dL (3.4-5.0); ALBUMIN/GLOBULIN RATIO 0.9 (1.0-1.7); CALCIUM 8.6 mg/dL (8.5-10.1); CREATININE 0.9 mg/dL (0.6-1.0); GFR 61.2; POTASSIUM 4.3 mmol/L (3.5-5.1); TOTAL BILIRUBIN 0.4 mg/dL (0.2-1.0); TOTAL PROTEIN 6.7 g/dL (6.4-8.2)
--- NOTE | 2020-10-01 22:47 | DS ---
DATE OF DISCHARGE: 10/01/2020 ATTENDING PHYSICIAN: Dr. Harvey. FINAL DISCHARGE DIAGNOSES: 1. COVID-19 pneumonia, treated. 2. Exacerbation of bronchial asthma. 3. Acute hypoxemic respiratory failure, improved. 4. Morbid obesity. 5. Insomnia, improved. HISTORY OF PRESENT ILLNESS: This is a 75-year-old female admitted with respiratory symptoms, shortness of breath and positive COVID-19 swab. PHYSICAL EXAMINATION: Please see the dictated note. PERTINENT LABORATORY AND X-RAY STUDIES: Her chest x-ray on admission showed patchy infiltrates. Laboratory studies: Hemoglobin was 11.2 g with white count of 9200. Chemistry panel fairly unremarkable with a creatinine of 0.9 mg percent, sodium 140, potassium 4.3 mEq. Transaminases and liver panel all within normal range. Nonfasting blood sugar 77. COURSE IN THE HOSPITAL: The patient was admitted. Dr. Harvey did start her on remdesivir per protocol. She received a full course along with convalescent plasma. Oxygen saturations were continued and gradually weaned down to a point that she had adequate oxygen saturation on room air. Prior to discharge, her oxygen saturations were 93% on room air, blood pressure was stable at ____. She was afebrile and her respiratory rate was 20 and unlabored. She did very well. She responded well to temazepam at bedtime. She finished her Rocephin during the course of this hospitalization. On the seventh hospital day, the patient's vital signs are quite stable. She was ready for discharge. At this time, I recommended 5 more days of cephalexin 500 mg p.o. t.i.d. and then stop. In addition, she should continue her Lexapro 20 mg daily, Pepcid 20 mg b.i.d., loratadine 10 mg daily. I also wrote her a script for Restoril 30 mg at bedtime to help with her sleep and finally Tussionex 5 mL q.12 hours p.r.n. cough. She will follow up with Bonnie Canchola in the clinic in a couple of weeks. She was discharged then from our hospital in stable condition with explicit instructions and followup care. JATIN ARREGUIN MD DR: EDSON/bobby JOB#: [id number] / [id number] ANOOP Umanzor MD, ANGELA PA
== END 2020-10-01 12:04 | disposition home or self-care (01) | DRG 177 ==
LOC: ER 15:52 → ICU 17:25 → 1 SOUTH 09-28 18:15
PROVIDERS: ADMIT Internal Medicine; ATTEND Internal Medicine
PROC: 5A0935A Assistance with Respiratory Ventilation, Less than 24 Consecutive Hours, High Flow/Velocity Cannula (ICD-10-PCS; principal; 2020-09-24)
PROC: XW033E5 Introduction of Remdesivir Anti-infective into Peripheral Vein, Percutaneous Approach, New Technology Group 5 (ICD-10-PCS; 2020-09-24)
PROC: 5A0935A Assistance with Respiratory Ventilation, Less than 24 Consecutive Hours, High Flow/Velocity Cannula (ICD-10-PCS; 2020-09-25)
PROC: XW13325 Transfusion of Convalescent Plasma (Nonautologous) into Peripheral Vein, Percutaneous Approach, New Technology Group 5 (ICD-10-PCS; 2020-09-26)
DX: U07.1 COVID-19 (principal); J96.01 Acute respiratory failure with hypoxia; J12.89 Other viral pneumonia; E87.1 Hypo-osmolality and hyponatremia; J45.901 Unspecified asthma with (acute) exacerbation; Z68.42 Body mass index [BMI] 45.0-49.9, adult; E66.01 Morbid (severe) obesity due to excess calories; E83.42 Hypomagnesemia; G47.00 Insomnia, unspecified; Z77.22 Contact with and (suspected) exposure to environmental tobacco smoke (acute) (chronic); Z79.899 Other long term (current) drug therapy; Z80.8 Family history of malignant neoplasm of other organs or systems; Z82.5 Family history of asthma and other chronic lower respiratory diseases; Z98.84 Bariatric surgery status; J30.2 Other seasonal allergic rhinitis; K21.9 Gastro-esophageal reflux disease without esophagitis; M19.90 Unspecified osteoarthritis, unspecified site
CPT/HCPCS: 36415; 71045; 80048; 80053; 83735; 83880; 84484; 85025; 85027; 86850; 86900; 86901; 86927; 87040; 87077; 87205; 93005; 94640; 96365; 96366; 96368; 96375; J0456; J0696; J1650; J1940; J2405; J2920; J2930; J7050; U0003; 99285-25; P9017

== ENCOUNTER → 2021-07-31 | Outpatient (CLI) | payer MEDICARE ==
[~2021-07-31] MED LIST: ESCITALOPRAM OX20 MG PO; FAMO-63 PO; LORA10TA3 PO; PRED-220 PO
--- NOTE | 2021-07-31 15:25 | RAD ---
INDICATION: Screening for osteopenia/osteoporosis. Postmenopausal evaluation COMPARISON: None. TECHNIQUE: Bone densitometry was performed through the lumbar spine and proximal femur. IMPRESSION: Lumbar Spine: BMD: 1.4 T-Score: 1.8 Range: Normal. Proximal Femur: BMD: 0.74 T-Score: -1.8 Range: Osteopenic World Health Organization Criteria for Bone Density: T-Score: > -1.0: Normal Range < -1.0 to -2.5: Osteopenic Range < -2.5: Osteoporotic Range Electronically signed by: Mann Richey MD (07/31/2021 3:22 PM) [id number]
--- NOTE | 2021-07-31 18:55 | RAD ---
Thyroid ultrasound 07/31/2021 CLINICAL HISTORY: Left thyroid nodule. TECHNIQUE: A real-time ultrasound examination of the thyroid gland was performed. Multiple images wer e obtained. FINDINGS: Comparison study is dated 05/19/2015. The thyroid gland is enlarged. The right lobe of the thyroid gland measures 5.3 x 1.8 x 1.6 cm in michelle gitudinal, transverse, and AP dimensions. The left lobe of the thyroid gland measures 10.6 x 4.8 x 4. 7 cm in size. The isthmus measures 4 mm in thickness. The thyroid gland is heterogeneous. Several hyp oechoic nodules are seen scattered throughout the right lobe of the thyroid gland. The largest measur es 2.5 to 0.9 cm in size. Within the left lobe of thyroid gland a slightly heterogeneous solid mass i s seen which measures 7.7 cm in greatest diameter. This has increased in size since the previous exam ination where it measured measured 6 cm in greatest diameter. IMPRESSION: Findings consistent with a multinodular goiter. The largest nodule/mass within the left l obe of the thyroid gland measures 7.7 cm in greatest diameter. This has increased in size since the p revious examination. This would be amenable to ultrasound-guided FNA if clinically warranted. Electronically signed by: Bao García MD (07/31/2021 6:53 PM) [id number]
--- NOTE | 2021-08-03 18:46 | RAD ---
DATE: 07/31/2021 EXAM: DIGITAL SCREEN BILAT W/CAD HISTORY: Screening COMPARISON: 10/15/2018 and 05/19/2015 This study was interpreted with the benefit of Computerized Aided Detection (CAD). Breast Density: SCATTERED The breast parenchyma shows scattered fibroglandular densities. Breast parenchyma level B. FINDINGS: No mass, suspicious calcification, or architectural distortion in either breast. IMPRESSION: No evidence of malignancy. BI-RADS CATEGORY: 1 NEGATIVE RECOMMENDED FOLLOW-UP: 12M 12 MONTH FOLLOW-UP PQRS compliance statement: Patient information was entered into a reminder system with a target due date for the next mammogram. Mammography is a sensitive method for finding small breast cancers, but it does not detect them all and is not a substitute for careful clinical examination. A negative mammogram does not negate a clinically suspicious finding and should not result in delay in biopsying a clinically suspicious abnormality. "Our facility is accredited by the [employer] Mammography Program."
== END ==
LOC: MAMMO 10:14
PROVIDERS: ATTEND Family Medicine
DX: Z12.31 Encounter for screening mammogram for malignant neoplasm of breast (principal); M85.88 Other specified disorders of bone density and structure, other site; Z78.0 Asymptomatic menopausal state; Z79.52 Long term (current) use of systemic steroids
CPT/HCPCS: 76536; 77067; 77080

== ENCOUNTER → 2022-03-14 | Day surgery (SDC) | payer MEDICARE ==
[~2022-03-14] MED LIST changes: +ACETAMINOPHEN 500 MG TABLET PO PRN; +BALANCED SALT IRRIG SOLN NO.2 500 ML IO ONE; +BENZONATATE 100 MG CAPSULE. PO PRN; +BRIMONIDINE 0.2% OPHTH SOLUTION 5ML BOTTLE. OD ONE; +CEFUROXIME OPHTH 4 MG/0.4 ML SYRINGE. OD ONE; +CHONDROIT-SOD-HYALURONATE KIT. OD ONE; +IBUPROFEN 200 MG TABLET PO PRN; +IPRATRPIUM/ALBUTEROL 0.5/2.5MG 3 ML NEBU. NEB PRN; +IV RINGERS SOLUTION,LACTATED 1,000 ML IV SCH; +LIDO/EPI IN BSS OPHTH 2.7 ML SYRINGE. OD ONE; +LIDOCAINE 2% JELLY 6ML IN APPLICATOR. ONE; +MIDAZOLAM HCL PF 2 MG/2 ML VIAL. IV ONE; +MIDAZOLAM HCL PF 2 MG/2 ML VIAL. ONE; +MONT10TA80 PO; +MULT-121 PO; +OMEG1CAP65 PO; +ONDANSETRON PF 4 MG/2 ML VIAL. IV PRN; +PHENYLEPHRINE 10% OPHTH SOLUTION 5ML BOTTLE. OD PRN; +POVIDONE-IODINE 5% OPHTH SOLUTION 30ML BOTTLE. OD ONE; +POVIDONE-IODINE 5% OPHTH SOLUTION 30ML BOTTLE. OD PRN; +PROPARACAINE 0.5% OPHTH SOLUTION 15ML BOTTLE. OD ONE; +PROPARACAINE 0.5% OPHTH SOLUTION 15ML BOTTLE. OD PRN; +albuterol INH; +prednisoLONE ACETATE 1% OPHTH SUSPENSION 5ML BOTTLE. OD ONE; +symbicort INH
[2022-03-14] MEDS: PHENYLEPHRINE 2.5% OPHTH SOLUTION 2ML BOTTLE. OD SCH ×3 (08:18→08:32)
[2022-03-14] MEDS: TROPICAMIDE 1% OPHTH SOLUTION 15ML BOTTLE. OD SCH ×3 (08:18→08:32)
[2022-03-14] MEDS: KETOROLAC TROMETHAMINE 0.5% OPHTH SOLUTION BOTTLE. OD SCH ×2 (08:19→08:27)
[2022-03-14] MEDS: TOBRAMYCIN 0.3% OPHTH SOLUTION 5ML BOTTLE. OD SCH ×2 (08:19→08:27)
--- NOTE | 2022-03-14 09:00 | PDOC4 ---
SURGEON: Leela Horne MD Date of Procedure: 03/14/22 PREOP Diagnosis Visually significant cataract: Right Eye OD POSTOP Diagnosis Same PROCEDURE: Phaco w/ posterior chamber IOL: Right Eye OD ANESTHESIA x Deep forniceal periocular 2% Lidocaine jelly Yasmin/retro bulbar block with 2% Lidocaine with 0.5% Marcaine DESCRIPTION OF PROCEDURE The risks, benefits, and alternatives were discussed with the patient who elected to proceed. Informed consent was obtained in writing and placed in the chart After anesthetizing the eye topically, the patient was taken to the operating room, and the operative eye was prepped and draped in the usual sterile fashion for ocular surgery. A wire lid speculum was placed. A 1-mm clear corneal paracentesis incision was created with the side-port blade at a position three o'clock hours clockwise from the temporal cornea. Then, 1% non-preserved Lidocaine with epinephrine was injected into the anterior chamber followed by viscoelastic. Cotton-tipped applicators were used to stabilize the globe, and a 2.4 mm keratome was used to create a self-sealing incision in clear cornea at the temporal limbus. The Utrata forceps were used to create a continuous curvilinear capsulorrhexis. Balanced saline solution was injected via cannula beneath the capsulorrhexis edge to hydrodissect the lens nucleus and cortex from the lens capsule. The phacoemulsification handpiece and a chopping instrument were then used to remove the lens nucleus. The remaining epinuclear material and cortex were removed with the irrigation/aspiration handpiece. Viscoelastic was used to re-inflate the lens capsule, and the intraocular lens was injected directly into the capsular bag. The corneal wound edges were hydrated with balanced salt solution on a cannula and the irrigation/aspiration handpiece was used to extract the remaining viscoelastic. Cefuroxime 0.1mg/ml / Vigamox 0.5% was injected into the anterior chamber intracamerally. The wounds were inspected and found to be watertight at an appropriate intraocular pressure. Topical antibiotic drops were placed on the corneal surface. LRI: No If Yes, Number [] [place] [] Length [] degrees Depth [] microns Incision [place]: 180 Toric Lens [place] [] Patch/shield with Maxitrol/Tobradex/Erythromycin ointment: Yes No Co-managed patients/postop examination stable for co-management with referring doctor. EBL EBL: None SPECIMANS COLLECTED Specimens Collected: None LEELA HORNE MD March 14, 2022 09:00
[2022-03-14 09:15] VITALS: BP 153/69
== END | disposition home or self-care (01) ==
LOC: SURG 07:40
PROVIDERS: ATTEND Ophthalmology
DX: H25.11 Age-related nuclear cataract, right eye (principal); F32.9 Major depressive disorder, single episode, unspecified; E66.9 Obesity, unspecified; K21.9 Gastro-esophageal reflux disease without esophagitis; G47.33 Obstructive sleep apnea (adult) (pediatric); M19.90 Unspecified osteoarthritis, unspecified site; J44.9 Chronic obstructive pulmonary disease, unspecified; G47.00 Insomnia, unspecified; J45.909 Unspecified asthma, uncomplicated; Z98.890 Other specified postprocedural states; Z79.899 Other long term (current) drug therapy
CPT/HCPCS: 66984; J2250; V2632

== ENCOUNTER → 2022-03-28 | Day surgery (SDC) | payer MEDICARE ==
[~2022-03-28] MED LIST changes: +ALBUTEROL SULFATE 2.5 MG/3 ML NEBU. NEB PRN; +ATROPINE 0.5 MG/5 ML DISP.SYRIN. IV PRN; -BRIMONIDINE 0.2% OPHTH SOLUTION 5ML BOTTLE. OD ONE; +BRIMONIDINE 0.2% OPHTH SOLUTION 5ML BOTTLE. OS ONE; -CEFUROXIME OPHTH 4 MG/0.4 ML SYRINGE. OD ONE; +CEFUROXIME OPHTH 4 MG/0.4 ML SYRINGE. OS ONE; -CHONDROIT-SOD-HYALURONATE KIT. OD ONE; +CHONDROIT-SOD-HYALURONATE KIT. OS ONE; -IPRATRPIUM/ALBUTEROL 0.5/2.5MG 3 ML NEBU. NEB PRN; -LIDO/EPI IN BSS OPHTH 2.7 ML SYRINGE. OD ONE; +LIDO/EPI IN BSS OPHTH 2.7 ML SYRINGE. OS ONE; -MIDAZOLAM HCL PF 2 MG/2 ML VIAL. IV ONE; +MIDAZOLAM HCL PF 2 MG/2 ML VIAL. IV PRN; -PHENYLEPHRINE 10% OPHTH SOLUTION 5ML BOTTLE. OD PRN; +PHENYLEPHRINE 10% OPHTH SOLUTION 5ML BOTTLE. OS PRN; -POVIDONE-IODINE 5% OPHTH SOLUTION 30ML BOTTLE. OD ONE; -POVIDONE-IODINE 5% OPHTH SOLUTION 30ML BOTTLE. OD PRN; +POVIDONE-IODINE 5% OPHTH SOLUTION 30ML BOTTLE. OS ONE; +POVIDONE-IODINE 5% OPHTH SOLUTION 30ML BOTTLE. OS PRN; -PROPARACAINE 0.5% OPHTH SOLUTION 15ML BOTTLE. OD ONE; -PROPARACAINE 0.5% OPHTH SOLUTION 15ML BOTTLE. OD PRN; +PROPARACAINE 0.5% OPHTH SOLUTION 15ML BOTTLE. OS ONE; +PROPARACAINE 0.5% OPHTH SOLUTION 15ML BOTTLE. OS PRN; -prednisoLONE ACETATE 1% OPHTH SUSPENSION 5ML BOTTLE. OD ONE; +prednisoLONE ACETATE 1% OPHTH SUSPENSION 5ML BOTTLE. OS ONE
[2022-03-28] MEDS: KETOROLAC TROMETHAMINE 0.5% OPHTH SOLUTION BOTTLE. OS SCH ×2 (08:23→08:32)
[2022-03-28] MEDS: TOBRAMYCIN 0.3% OPHTH SOLUTION 5ML BOTTLE. OS SCH ×2 (08:23→08:32)
[2022-03-28] MEDS: TROPICAMIDE 1% OPHTH SOLUTION 15ML BOTTLE. OS SCH ×3 (08:23→08:41)
[2022-03-28] MEDS: PHENYLEPHRINE 2.5% OPHTH SOLUTION 2ML BOTTLE. OS SCH ×3 (08:23→08:41)
--- NOTE | 2022-03-28 09:55 | PDOC4 ---
SURGEON: Leela Horne MD Date of Procedure: 03/28/22 PREOP Diagnosis Visually significant cataract: Left Eye OS POSTOP Diagnosis Same PROCEDURE: Phaco w/ posterior chamber IOL: Left Eye OS ANESTHESIA x Deep forniceal periocular 2% Lidocaine jelly Yasmin/retro bulbar block with 2% Lidocaine with 0.5% Marcaine DESCRIPTION OF PROCEDURE The risks, benefits, and alternatives were discussed with the patient who elected to proceed. Informed consent was obtained in writing and placed in the chart After anesthetizing the eye topically, the patient was taken to the operating room, and the operative eye was prepped and draped in the usual sterile fashion for ocular surgery. A wire lid speculum was placed. A 1-mm clear corneal paracentesis incision was created with the side-port blade at a position three o'clock hours clockwise from the temporal cornea. Then, 1% non-preserved Lidocaine with epinephrine was injected into the anterior chamber followed by viscoelastic. Cotton-tipped applicators were used to stabilize the globe, and a 2.4 mm keratome was used to create a self-sealing incision in clear cornea at the temporal limbus. The Utrata forceps were used to create a continuous curvilinear capsulorrhexis. Balanced saline solution was injected via cannula beneath the capsulorrhexis edge to hydrodissect the lens nucleus and cortex from the lens capsule. The phacoemulsification handpiece and a chopping instrument were then used to remove the lens nucleus. The remaining epinuclear material and cortex were removed with the irrigation/aspiration handpiece. Vi scoelastic was used to re-inflate the lens capsule, and the intraocular lens was injected directly into the capsular bag. The corneal wound edges were hydrated with balanced salt solution on a cannula and the irrigation/aspiration handpiece was used to extract the remaining viscoelastic. Cefuroxime 0.1mg/ml / Vigamox 0.5% was injected into the anterior chamber intracamerally. The wounds were inspected and found to be watertight at an appropriate intraocular pressure. Topical antibiotic drops were placed on the corneal surface. LRI: No If Yes, Number [] [place] [] Length [] degrees Depth [] microns Incision [place]: 180 Toric Lens [place] [] Patch/shield with Maxitrol/Tobradex/Erythromycin ointment: Yes No Co-managed patients/postop examination stable for co-management with referring doctor. EBL EBL: None SPECIMANS COLLECTED Specimens Collected: None LEELA HORNE MD March 28, 2022 09:54
[2022-03-28 10:01] VITALS: BP 150/89
== END | disposition home or self-care (01) ==
LOC: SURG 07:44
PROVIDERS: ATTEND Ophthalmology
DX: H25.12 Age-related nuclear cataract, left eye (principal); F32.9 Major depressive disorder, single episode, unspecified; E66.01 Morbid (severe) obesity due to excess calories; G47.33 Obstructive sleep apnea (adult) (pediatric); I10 Essential (primary) hypertension; J44.9 Chronic obstructive pulmonary disease, unspecified; K21.9 Gastro-esophageal reflux disease without esophagitis; G47.00 Insomnia, unspecified; M19.90 Unspecified osteoarthritis, unspecified site; Z79.899 Other long term (current) drug therapy; Z98.890 Other specified postprocedural states; Z68.42 Body mass index [BMI] 45.0-49.9, adult; Z79.52 Long term (current) use of systemic steroids; Z98.84 Bariatric surgery status
CPT/HCPCS: 66984; J2250; V2632